=== PATIENT | male | born 1980 | race Caucasian/White ===

== ENCOUNTER 2016-08-14 21:36 | Observation (INO) | payer MEDICAID ==
[2016-08-14 22:25] LABS: ADD DIFF? NO; ADD MORPH? YES; ADD SCAN? NO; ATYPICAL LYMPHOCYTE FLAG 30 (0-99); FRAGMENT RBC FLAG 20 (0-99); HEMATOCRIT 27.3 % (40.0-51.0); HEMOGLOBIN 8.5 g/dL (13.7-17.5); LEFT SHIFT FLG 0 (0-99); LIPEMIA HEMOLYSIS FLAG 80 (0-99); MEAN CELL HEMOGLOBIN CONCENTR. 31.1 g/dL (32.4-36.7); MEAN CELL VOLUME 83.5 fL (81.5-99.8); MEAN PLATELET VOLUME 9.6 fL (8.7-11.7); PLATELET CLUMPS FLAG 10 (0-99); PLATELET COUNT 306 10^3/uL (150-400); RED BLOOD CELL COUNT 3.27 10^6/uL (4.40-6.38)
--- NOTE | 2016-08-14 22:26 | EDPHY ---
H & P Stated Complaint: 2 days ago one episode of black vomit and stool HPI/ROS: HPI CHIEF COMPLAINT: Hematemesis, melena HISTORY OF PRESENT ILLNESS: This patient 36-year-old male significant past medical history for hepatitis C and history of alcohol abuse, untreated hepatitis C presents to the emergency room with nausea vomiting that occurred around 6:00 a.m. this morning with black vomit. Patient also endorses melena or melenic stool over the past day. Denies any complaints he does tell me that at times he has abdominal pain. He tells me he has never been told he has cirrhosis but has been told that he has hepatitis-C. He tells me decided come to the emergency room after having black tarry stool and black vomit earlier this morning late at night because decided to rest today and then his friend was going to work and dropped him off in the emergency room. Of note upon arrival here in the emergency room he appears well nontoxic he does have a rather distended abdomen with prominent abdominal veins concerning for cirrhosis. Patient declined rectal exam here in the emergency room. He is not actively vomiting. Past Medical History: Hepatitis-C untreated, alcohol abuse ? Liver cirrhosis Past Surgical History: Denies significant surgical history Social History: History of alcohol abuse states he rarely drinks alcohol any more, smokes marijuana, denies tobacco, unemployed Family History: Noncontributory ROS REVIEW OF SYSTEMS: A comprehensive 10 point review of systems is otherwise negative aside from elements mentioned in the history of present illness. Exam Constitutional appears well nontoxic, triage nursing summary reviewed, vital signs reviewed, awake/alert. Eyes normal conjunctivae and sclera, EOMI, PERRLA. No jaundice or icteric eyes. HENT normal inspection, atraumatic, moist mucus membranes, no epistaxis, neck supple/ no meningismus, no raccoon eyes. Respiratory clear to auscultation bilaterally, normal breath sounds, no respiratory distress, no wheezing. Cardiovascular rate normal, regular rhythm, no murmur, no edema, distal pulses normal. Gastrointestinal abdomen is soft, rather large, prominent abdominal veins, I do not appreciate hepatomegaly on exam, no guarding or peritoneal signs Genitourinary no CVA tenderness. Musculoskeletal no midline vertebral tenderness, full range of motion, no calf swelling, no tenderness of extremities, no meningismus, good pulses, neurovascularly intact. Skin pink, warm, & dry, no rash, skin atraumatic. Neurologic awake, alert and oriented x 3, AAOx3, moves all 4 extremities equally, motor intact, sensory intact, CN II-XII intact, normal cerebellar, normal vision, normal speech. Psychiatric normal mood/affect. Heme/Lymph/Immune no lymphadenopathy. Differential Diagnosis: Includes but is not limited to in a particular order, acute GI bleed, upper GI bleed, peptic ulcer disease, esophageal varices, liver cirrhosis, lower GI bleed. Medical Decision Making: Given this patient's history of alcohol abuse and hepatitis-C untreated and findings on exam to indicate he most likely has liver disease and his complaint of black tarry stool with black vomit however declining rectal exam will check H&H, type and screen, the placed on Protonix drip and octreotide drip as most likely he is having a GI bleed. Patient will need to be admitted to the hospital at this time he is hemodynamically stable. He will have 2 large-bore IVs established. Re-evaluation: 2237: Of note this patient's H&H is compared he is currently 8.5 on April 17 was 11.3 this an acute drop. CT scan of the Abdomen pelvis with IV contrast The results of the study are small bowel dilatation with fluid filled bowel consistent with gastroenteritis or enteritis, otherwise no acute inflammatory process. The study was read by Dr. Jatinder Ho I viewed the images myself on the PACS system. 8: Spoke with the hospitalist service Dr. Flores who accepts the admission. 2318: Re-examination at this time this patient is hemodynamically stable have placed him on a Protonix drip and octreotide drip. I have admitted to the hospitalist service. He is not actively bleeding here in the emergency room is hemodynamically stable as H&H gym reviewed show an acute drop. Patient has underlying liver disease hepatitis C and history of alcohol abuse it is possible he has an ulcer that is causing a lot of stool and hematemesis versus esophageal varices. The hospitalist service did ask that I consult GI. 2338; I did speak with Gastroenterology Dr. Alvarado will plan on scoping. NPO. Agrees with current management. Source: Patient - Personal History Current Tetanus/Diphtheria Vaccine: Yes Current Tetanus Diphtheria and Acellular Pertussis (TDAP): Yes - Medical/Surgical History Hx Asthma: No Hx Chronic Respiratory Disease: No Hx Diabetes: No Hx Cardiac Disease: No Hx Renal Disease: No Hx Cirrhosis: No Hx Alcoholism: Yes Hx HIV/AIDS: No Hx Splenectomy or Spleen Trauma: No Other PMH: IV DRUG USE/ L FRONTAL SKULL FX 09/08, anemia - Social History Smoking Status: Light smoker Constitutional: Initial Vital Signs Temperature (C) 36.8 C 08/14/16 21:40 Heart Rate 77 08/14/16 21:40 Respiratory Rate 16 08/14/16 21:40 Blood Pressure 128/87 H 08/14/16 21:40 O2 Sat (%) 95 08/14/16 21:40 O2 Delivery Mode Room Air Allergies/Adverse Reactions: No Known Allergies Allergy (Verified 04/17/16 21:30) Home Medications: Medication Instructions Recorded NK [No Known Home Meds] 08/14/16 Medical Decision Making - Data Points Laboratory Results: Laboratory Results 08/14/16 22:10 08/14/16 22:10 08/14/16 08/14/16 08/14/16 23:10 22:45 22:40 WBC RBC Hgb Hct MCV MCH MCHC RDW Plt Count MPV Neut % (Auto) Lymph % (Auto) [place] % (Auto) Eos % (Auto) Baso % (Auto) Nucleat RBC Rel Count Absolute Neuts (auto) Absolute Lymphs (auto) Absolute Monos (auto) Absolute Eos (auto) Absolute Basos (auto) Absolute Nucleated RBC Immature Gran % Immature Gran # Platelet Estimate Giant Platelets Hypochromasia Microcytic Cells Oval Macrocytes PT 14.4 SEC (12.0-15.0) INR 1.13 (0.83-1.16) APTT 31.0 SEC (23.0-38.0) VBG Lactic Acid 0.9 mmol/L (0.7-2.1) Sodium Potassium Chloride Carbon Dioxide Anion Gap BUN Creatinine Estimated GFR Glucose Calcium Total Bilirubin Conjugated Bilirubin Unconjugated Bilirubin AST ALT Alkaline Phosphatase Total Protein Albumin Lipase Urine Color YELLOW Urine Appearance CLEAR Urine pH 5.0 (5.0-7.5) Ur Specific [place] 1.025 (1.002-1.030) Urine Protein NEGATIVE (NEGATIVE) Urine Ketones NEGATIVE (NEGATIVE) Urine Blood NEGATIVE (NEGATIVE) Urine Nitrate NEGATIVE (NEGATIVE) Urine Bilirubin NEGATIVE (NEGATIVE) Urine Urobilinogen NEGATIVE EU (0.2-1.0) Ur Leukocyte Esterase NEGATIVE (NEGATIVE) Ur Culture Indicated? NOT INDICATED (NI) Urine Glucose NEGATIVE (NEGATIVE) Urine Opiates Screen Urine Barbiturates Ur Phencyclidine Scrn Ur Amphetamines Screen U Benzodiazepines Scrn Urine Cocaine Screen U Marijuana (THC) Screen Patient ABO/Rh Antibody Screen 08/14/16 22:10 WBC 4.87 10^3/uL (3.80-9.50) RBC 3.27 L 10^6/uL (4.40-6.38) Hgb 8.5 L g/dL (13.7-17.5) Hct 27.3 L % (40.0-51.0) MCV 83.5 fL (81.5-99.8) MCH 26.0 L pg (27.9-34.1) MCHC 31.1 L g/dL (32.4-36.7) RDW 20.5 H % (11.5-15.2) Plt Count 306 10^3/uL (150-400) MPV 9.6 fL (8.7-11.7) Neut % (Auto) 49.1 % (39.3-74.2) Lymph % (Auto) 33.9 % (15.0-45.0) [place] % (Auto) 15.4 H % (4.5-13.0) Eos % (Auto) 1.2 % (0.6-7.6) Baso % (Auto) 0.4 % (0.3-1.7) Nucleat RBC Rel Count 0.0 % (0.0-0.2) Absolute Neuts (auto) 2.39 10^3/uL (1.70-6.50) Absolute Lymphs (auto) 1.65 10^3/uL (1.00-3.00) Absolute Monos (auto) 0.75 10^3/uL (0.30-0.80) Absolute Eos (auto) 0.06 10^3/uL (0.03-0.40) Absolute Basos (auto) 0.02 10^3/uL (0.02-0.10) Absolute Nucleated RBC 0.00 10^3/uL (0-0.01) Immature Gran % 0.0 % (0.0-1.1) Immature Gran # 0.00 10^3/uL (0.00-0.10) Platelet Estimate ADEQUATE (ADEQ) Giant Platelets PRESENT H Hypochromasia 1+ H Microcytic Cells 1+ H Oval Macrocytes 1+ H PT INR APTT VBG Lactic Acid Sodium 139 mEq/L (134-144) Potassium 3.9 mEq/L (3.5-5.2) Chloride 111 H mEq/L (97-110) Carbon Dioxide 20 L mEq/l (22-31) Anion Gap 8 mEq/L (8-16) BUN 7 mg/dL (7-23) Creatinine 0.6 L mg/dL (0.7-1.3) Estimated GFR > 60 Glucose 100 mg/dL (70-100) Calcium 7.8 L mg/dL (8.5-10.4) Total Bilirubin 0.2 mg/dL (0.1-1.4) Conjugated Bilirubin 0.1 mg/dL (0.0-0.5) Unconjugated Bilirubin 0.1 mg/dL (0.0-1.1) AST 108 H IU/L (17-59) ALT 103 H IU/L (21-72) Alkaline Phosphatase 102 IU/L (38-126) Total Protein 6.3 g/dL (6.3-8.2) Albumin 2.8 L g/dL (3.5-5.0) Lipase 149.0 IU/L (23-300) Urine Color Urine Appearance Urine pH Ur Specific [place] Urine Protein Urine Ketones Urine Blood Urine Nitrate Urine Bilirubin Urine Urobilinogen Ur Leukocyte Esterase Ur Culture Indicated? Urine Glucose Urine Opiates Screen Pending Urine Barbiturates Pending Ur Phencyclidine Scrn Pending Ur Amphetamines Screen Pending U Benzodiazepines Scrn Pending Urine Cocaine Screen Pending U Marijuana (THC) Screen Pending Patient ABO/Rh O POSITIVE Antibody Screen NEGATIVE Medications Given: Discontinued Medications Sodium Chloride (Ns) 1,000 mls @ 0 mls/hr IV ONCE ONE PRN Reason: Wide Open Stop: 08/14/16 22:33 Last Admin: 08/14/16 22:30 Dose: 1,000 mls Ondansetron HCl (Zofran) 4 mg IVP EDNOW ONE Stop: 08/14/16 22:33 Last Admin: 08/14/16 22:35 Dose: 4 mg Pantoprazole Sodium (Protonix) 40 mg IVP EDNOW ONE Stop: 08/14/16 22:41 Last Admin: 08/14/16 22:40 Dose: 40 mg Departure - Departure Disposition: [facility] Clinical Impression: GI bleed Qualifiers: GI bleed type/associated pathology: melena Qualifier Code: (K92.1) Melena Condition: Good
[2016-08-14 22:28] LABS: RED CELL DISTRIBUTION WIDTH 20.5 % (11.5-15.2)
[2016-08-14] MEDS ORDERED: PANTOPRAZOLE SODIUM 80 MG in NS 100 ML IV ONE (22:32)
[2016-08-14] MEDS ORDERED: NS 1,000 ML IV ONE ×2 (22:32→23:32)
[2016-08-14] MEDS ORDERED: ONDANSETRON 4 MG/2 ML VIAL IVP ONE (22:32)
[2016-08-14 22:36] LABS: ANION GAP 8 mEq/L (8-16); CALCIUM 7.8 mg/dL (8.5-10.4); CARBON DIOXIDE 20 mEq/l (22-31); CHLORIDE 111 mEq/L (97-110); CREATININE 0.6 mg/dL (0.7-1.3); GLOMERULAR FILTRATION RATE > 60; GLUCOSE 100 mg/dL (70-100); POTASSIUM 3.9 mEq/L (3.5-5.2); SODIUM 139 mEq/L (134-144)
[2016-08-14] MEDS ORDERED: IOPAMIDOL (ISOVUE-300) 100 ML BTL IV ONE (22:37)
[2016-08-14] MEDS ORDERED: PANTOPRAZOLE SODIUM 40 MG VIAL IVP ONE (22:40)
[2016-08-14 22:56] LABS: GIANT PLATELETS PRESENT; HYPOCHROMIA 1+; MACROCYTES 1+; MICROCYTES 1+; PLATELET ESTIMATE ADEQUATE (ADEQ)
[2016-08-14] MEDS ORDERED: PANTOPRAZOLE SODIUM 80 MG in NS 100 ML IV SCH (23:00)
[2016-08-14 23:01] LABS: ALBUMIN 2.8 g/dL (3.5-5.0); BILIRUBIN,TOTAL 0.2 mg/dL (0.1-1.4); BILIRUBIN-CONJUGATED 0.1 mg/dL (0.0-0.5); BILIRUBIN-UNCONJUGATED 0.1 mg/dL (0.0-1.1); TOTAL PROTEIN 6.3 g/dL (6.3-8.2)
[2016-08-14 23:05] LABS: INR 1.13 (0.83-1.16); PROTIME(PATIENT) 14.4 SEC (12.0-15.0)
[2016-08-14 23:17] LABS: COLOR YELLOW; LEUKOCYTE ESTERASE,URINE NEGATIVE (NEGATIVE); NITRITE,URINE NEGATIVE (NEGATIVE)
--- NOTE | 2016-08-14 23:18 | CT ---
CT Scan of the Abdomen and Pelvis (With Contrast) Clinical Indications: Abdominal pain Technique:. 90 mL of Isovue 300 were given intravenously by machine power injection. Multidetector helical CT imaging was performed from the diaphragm to the symphysis pubis. Dose reduction techniques were utilized. Findings: CT ABDOMEN: Lung bases are clear. Liver, spleen, pancreas enhance normally. Kidneys enhance symmetric ally. There is moderate fluid-filled distention of the stomach and the small bowel throughout, suggestive o f ileus or enteritis. Moderate retained stool is present in the right colon and the transverse colon. CT PELVIS: No free fluid or masses. The appendix is normal in appearance in the right lower quadrant, retrocecal in location. Impression: 1. Moderate fluid-filled distention of the stomach and entire small bowel suggestive of enteritis or ileus. Moderate retained fecal material in the ascending and transverse colon. Results called to Dr. Henson at 11:10 PM
[2016-08-14] MEDS ORDERED: ONDANSETRON 4 MG/2 ML VIAL IVP PRN (23:32)
[2016-08-14] MEDS ORDERED: NS 1,000 ML IV SCH (23:45)
[2016-08-15 00:16] LABS: PHENCYCLIDINE URINE BCH < 6 ng/ml (NEGATIVE)
[2016-08-15 00:28] LABS: TETRAHYDROCANNABINOL URINE > 800 ng/mL (NEGATIVE)
[2016-08-15 00:29] LABS: PHENCYCLIDINE URINE BCH NEGATIVE (NEGATIVE); TETRAHYDROCANNABINOL URINE > 800 ng/mL (NEGATIVE)
--- NOTE | 2016-08-15 01:00 | GHP ---
[f rep st] HISTORY AND PHYSICAL DATE OF ADMISSION: 08/14/2016 CHIEF COMPLAINT: Coffee-grounds emesis and melena. HISTORY OF PRESENT ILLNESS: A 36-year-old male with a history of polysubstance abuse, hepatitis C, a nd alcohol abuse in the past, who presents with complaints of sudden onset of abdominal pain, coffee- grounds emesis and melena on the morning of presentation. The patient reports being in his normal st ate of health the day prior to presentation, normal intake, without lightheadedness, chest pain, shor tness of breath, and nora this morning, had some nausea, some right-sided abdominal discomfort, and v omited what he described as black bloody vomit. The patient denies any active lightheadedness or sully st pain in the emergency department. Has not had recurrent episodes of coffee-grounds emesis. Has n oted melena since that emesis. The patient reports having had an EGD and a colonoscopy this year in [place], and nothing was found. He reports that was done because of low blood counts noted at an [facility]. The patient actively denying any fevers or chills, rashes, myalgias, arthralgias. Is experiencing still some epigastric and right-sided abdominal pain. Nausea is improved. PAST MEDICAL HISTORY: 1. Hepatitis C. 2. History of polysubstance abuse. 3. History of alcohol abuse. Patient reports cessation. SOCIAL HISTORY: He reports no tobacco, previous alcohol, daily marijuana. No active illicit drug us e. FAMILY HISTORY: Patient is adopted, he does not know. REVIEW OF SYSTEMS: A 10-point review of systems is negative, with the exception of that reported in the HPI. PHYSICAL EXAMINATION: VITAL SIGNS: Blood pressure 128/87, heart rate 77, respiratory rate 16, 95% o n room air, 36.8. GENERAL: This is a healthy-appearing male in no acute distress. HEENT: Notable for moist mucous membranes. Eye exam is negative for any icterus. CARDIAC: Patient is regular rate and rhythm. PULMONARY: Clear to auscultation bilaterally. GASTROINTESTINAL: Positive bowel sound s. Abdomen is soft, mildly tender to palpation in the right upper and lower quadrants. No rebound o r guarding is noted. MUSCULOSKELETAL: Negative for any lower extremity edema. SKIN: Negative for any rashes or jaundice. NEUROLOGIC: He is alert and oriented x3. PSYCHIATRIC: He is cooperative o n interview and examination. DATA: Hemoglobin 8.5, hematocrit 27.3, platelets of 306. Creatinine of 0.6, AST is 108, ALT 103. U rinalysis is negative. CT of the abdomen, which I personally reviewed and interpreted, shows some constipation, otherwise no acute abnormalities. Radiology comments on distention of the small bowel suggestive of enteritis or possible evolving ileus. ASSESSMENT AND PLAN: This is a 36-year-old male presenting with hematemesis/coffee-grounds emesis. 1. Acute upper gastrointestinal bleed. The patient denies any alcohol or drug abuse. Possibility o f gastritis, ulcer disease is certainly possible. Will make the patient n.p.o. Fluid resuscitate wi th IV normal saline, and start a pantoprazole drip. Gastroenterology has been consulted from the [facility] department for EGD in the morning. We will keep the patient n.p.o. now, and follow a CBC in t he morning. 2. Anemia, secondary to acute blood loss. As above, suspect upper gastrointestinal source. Will pl an for EGD in the morning. 3. Hepatitis C. Patient does have elevations in his AST/ALT. Can continue to follow. Would not in itiate additional diagnostics at this time. 4. History of polysubstance abuse. Will send a urine toxicology screen on the patient's urine. 5. Prophylaxis. Lovenox is contraindicated, in the setting of acute GI bleed. 6. Diet. N.p.o. 7. Disposition. I expect in less than 2 midnights if the patient remains hemodynamically stable wit h normal imaging. I have discussed the case with the ER physician. Patient will be triaged to the medical/surgical [facility] or for care. /[id number]/MODL
[2016-08-15 05:37] LABS: % IMMATURE GRANULYOCYTES 0.2 % (0.0-1.1); ABSOLUTE IMMATURE GRANULOCYTES 0.01 10^3/uL (0.00-0.10); ADD DIFF? NO; ADD MORPH? YES; ADD SCAN? NO; ATYPICAL LYMPHOCYTE FLAG 30 (0-99); FRAGMENT RBC FLAG 20 (0-99); HEMATOCRIT 27.7 % (40.0-51.0); HEMOGLOBIN 8.3 g/dL (13.7-17.5); LEFT SHIFT FLG 0 (0-99); LIPEMIA HEMOLYSIS FLAG 80 (0-99); MEAN CELL HEMOGLOBIN 25.1 pg (27.9-34.1); MEAN CELL VOLUME 83.7 fL (81.5-99.8); PLATELET CLUMPS FLAG 10 (0-99); PLATELET COUNT 279 10^3/uL (150-400); RED BLOOD CELL COUNT 3.31 10^6/uL (4.40-6.38)
[2016-08-15 05:50] LABS: ANION GAP 10 mEq/L (8-16); CALCIUM 8.1 mg/dL (8.5-10.4); CARBON DIOXIDE 19 mEq/l (22-31); CHLORIDE 112 mEq/L (97-110); CREATININE 0.6 mg/dL (0.7-1.3); GLOMERULAR FILTRATION RATE > 60; GLUCOSE 84 mg/dL (70-100); POTASSIUM 4.1 mEq/L (3.5-5.2); SODIUM 141 mEq/L (134-144)
[2016-08-15 05:55] LABS: RED CELL DISTRIBUTION WIDTH 20.4 % (11.5-15.2)
[2016-08-15 06:43] LABS: HYPOCHROMIA 1+; MACROCYTES 1+; MICROCYTES 1+; PLATELET ESTIMATE ADEQUATE (ADEQ)
[2016-08-15 06:44] LABS: GIANT PLATELETS PRESENT
--- NOTE | 2016-08-15 08:33 | HOSPPROG ---
Hospitalist Progress Note Assessment/Plan: 36-y/o M PMH polysubstance abuse, hep C, EtOH abuse in the past, p/w sudden onset abd pain starting yesterday. Awoke in [facility] and noted some R-sided abd pain and followed by bloody emesis. Has had melena since then. This is my first visit with patient. Chart reviewed and d/w Dr. Flores. #. UGIB: pt has been fluid resuscitated and started on IV pantoprazole plan for EGD this AM #. hep C: elevted LFTs will arrange for outpatient followup #. polysubstance: + amphetamines and marijuana despite pt's claims of no illicits recently #. Dispo: pending Objective: Vital Signs Temp Pulse Resp BP Pulse Ox 98.7 F 59 L 18 113/77 95 08/15/16 08:00 08/15/16 08:00 08/15/16 08:00 08/15/16 08:00 08/15/16 08:00 Laboratory Results 08/15/16 05:10 08/15/16 05:10 08/14/16 08/15/16 08/16/16 05:59 05:59 05:59 Intake Total 1100 Output Total 400 Balance 700 PT 14.4 SEC (12.0-15.0) 08/14/16 22:45 INR 1.13 (0.83-1.16) 08/14/16 22:45 ICD10 Worksheet Patient Problems: Problems Problem Status Diagnosed GI bleed Acute Anemia Acute Polysubstance abuse Acute
[2016-08-15] MEDS ORDERED: PANTOPRAZOLE SODIUM 80 MG in NS 100 ML IV SCH (09:00)
[2016-08-15] MEDS ORDERED: PROPOFOL 200 MG/20 ML VIAL ONE ×2 (10:01→10:04)
[2016-08-15] MEDS ORDERED: LIDOCAINE 2% 5 ML SDV ONE (10:03)
[2016-08-15] MEDS ORDERED: PANTOPRAZOLE SODIUM 40 MG TAB PO ONE ×2 (10:11→13:00)
--- NOTE | 2016-08-15 10:16 | SUROPNOTE ---
[facility] Operative Report - Surgery EGD Full note dictated. Findings: Grade B Esophagitis Duodenal changes c/w celiac sprue biopsied Low risk for significant bleeding REC: PPI daily D/C ETOH Advance diet to gluten free diet Await path OK to D/C from GO standpoint Follow up with GI family reunification specialist for Hep C
--- NOTE | 2016-08-15 10:55 | GPN ---
[f rep st] PROCEDURE NOTE DATE OF PROCEDURE: 08/15/2016 PROCEDURE PERFORMED: Upper endoscopy with biopsy. INSTRUMENT USED: Olympus GIF videogastroscope. MEDICINES GIVEN: Monitored anesthesia care per the anesthesiologist. INDICATIONS: Patient is a 36-year-old with hematemesis, with history of alcohol and hepatitis C, and history of celiac sprue untreated, referred for upper endoscopy. Prior to procedure, exam performed including auscultation of heart and lungs within normal limits. Patient's mental status was appropri ate. Procedure was explained, including risks of bleeding, perforation, effects of sedation. He gav e his informed consent. FINDINGS: Patient was placed in left lateral decubitus position. Medicines were given by the anesth esiologist. Instrument was inserted through the bite block into the esophagus. No obvious varices were seen, but there was a grade B erosive esophagitis at the GE junction. No obvious Melinda-Schmidt tear. There w as no old blood. No active bleeding. Stomach was normal, including on retroflexion. Scope then pas sed in the duodenum, which had a significant cobblestone appearance throughout to the bulb and second portion of the duodenum consistent with active celiac sprue. Biopsies were taken with minimal blood loss. Scope was removed from the patient, who tolerated the procedure well. Time of the procedure w as approximately 10 minutes. ASSESSMENT: 1. Grade B erosive esophagitis. I suspect this was the source of his hematemesis. He is at low ris k for rebleeding. 2. Duodenal changes consistent with celiac sprue. I think that patient may have some chronic anemia , to which he does admit, likely from underlying celiac. PLAN: 1. Recommend proton pump inhibitor daily. 2. Discontinue alcohol. 3. Will await biopsies of his duodenum. 4. In the meantime, I would recommend patient initiate a gluten-free diet. 5. May advance diet, okay to discharge home today as low risk for rebleeding. I would recommend fol silvanoup with Gastroenterology with our principal architect for evaluation and treatment of his hepatitis C. I will have my office call him next week. Thanks for this consult. /[id number]/MODL
[2016-08-15 11:53] VITALS: BP 111/72; PULSE 74; RESP 18; TEMP 98.6; O2SAT 96
--- NOTE | 2016-08-15 12:06 | GCON ---
[f rep st] CONSULTATION DATE OF CONSULTATION: 08/15/2016 CHIEF COMPLAINT: Hematemesis. HISTORY OF PRESENT ILLNESS: I am asked to see the patient in consultation by Dr. Flores for the [facility] complaint of hematemesis. As you know, this is a pleasant 36-year-old, who presents to the emerge ncy room with 1 episode hematemesis he states happened yesterday morning around 6 a.m.; he noted lashon k coffee-grounds emesis and then followed by 1 black melenic stool. He states he has never had histo ry of GI bleeding before, has no known history of peptic ulcer disease. States that he did have an u pper and lower endoscopy in [place], [place], about 6 months ago and states things were "normal"; altho ugh, he was told he should be on a gluten-free diet with which he admits to being noncompliant. Does note that he as a family history for celiac sprue in his sister. He does use alcohol. He states hi s last alcohol use was about 3 days ago. He has a history of polysubstance abuse. He has a history of hepatitis C but has not undergone therapy, but states that he does not recall having any mention o f esophageal varices on his last upper endoscopy. He denies NSAID use. He does have some abdominal pain. He has chronic diarrhea that is not changed from his baseline. It will happen every few days with significant watery diarrhea. He also states that he has a history of chronic anemia and was sammy d that that was probably from underlying celiac sprue. ALLERGIES: No reported allergies. MEDICATION: He states he takes no medications prior to admission. PAST MEDICAL HISTORY: Notable for hepatitis C, polysubstance abuse, alcohol abuse, probable celiac s prue per history, history of anemia with an EGD/colon evaluation previously and thought that his anem ia was from celiac sprue. SOCIAL HISTORY: He uses alcohol. History of polysubstance abuse, although he states none recently. FAMILY HISTORY: He is adopted but does know his biological sister who has celiac sprue. REVIEW OF SYSTEM: Review of 10 systems including general, psych, HEENT, cardiovascular, pulmonary, r enal, hematologic, musculoskeletal, derm, and neurologic discussed and otherwise negative except note d above. PHYSICAL EXAMINATION: VITAL SIGNS: Afebrile at 36.6, BP 118/78, pulse 70. HEENT: PERRLA. EOMI. No scleral icterus. Oropharynx is normal. NECK: Supple without lymphadenopathy. No thyromegaly. CARDIAC: Regular rate and rhythm. S1, S2 normal. No S3 or murmur detected. PMI normal location. CHEST: Clear to auscultation bilaterally. Normal chest excursion. No spider angiomata. ABDOMEN: Soft and nontender. There is no hepatosplenomegaly, no fluid wave, no distention. EXTREMITIES: Normal. No pitting edema. NEUROLOGIC: Nonfocal. No asterixis. LABORATORY DATA: Of note, BUN was not elevated, normal at 7. Creatinine 0.6, sodium 139, potassium 3.9, alk phos normal at 102, bili normal at 0.2, AST 108, ALT 103, albumin low at 2.8, lipase normal at 149. Coag's normal with PT of 14.4 and an INR 1.13. CT scan of the abdomen from 08/14/2016 shows moderate fluid distention of the stomach and entire smal l bowel, suggestive of enteritis or ileitis; moderate retained fecal material in the ascending and tr ansverse colon. ASSESSMENT: Upper gastrointestinal bleed, although hemodynamically stable. As he does not have an e levated BUN, it was likely not a significant bleed. Consider Melinda-Schmidt or esophagitis. Of janet rn is patient's suggestive history of celiac sprue., which is being untreated. This may account for some chronic anemia and could account for findings on CT scan if significant enough. Patient does no t have stigmata of cirrhosis but does have history of drinking and hepatitis C, and will need to cons ider esophageal varices, peptic ulcer disease, etc. PLAN: Recommend upper endoscopy for evaluation of upper GI bleed. Can evaluate for active celiac sp rue at that time. Patient would benefit from outpatient evaluation and treatment for his hepatitis C . Further recommendations to follow. Thank you for this consult. /[id number]/MODL
--- NOTE | 2016-08-15 12:11 | GDS ---
[f rep st] DISCHARGE SUMMARY DISCHARGE DIAGNOSES: 1. Upper gastrointestinal bleed, found to have esophagitis on esophagogastroduodenoscopy today with appearance of duodenal changes consistent with celiac sprue. 2. History of hepatitis C. 3. History of polysubstance abuse. PROCEDURES: 1. 08/14/2016: Abdominal CT which shows moderate fluid-filled distention of the stomach and entire small bowel suggestive of enteritis or ileus. 2. 08/15/2016: EGD shows grade B esophagitis and duodenal changes consistent with celiac sprue that has been biopsied. BRIEF HISTORY: Please see dictated H and P by Dr. Deya Flores for complete details. In brief, Mr. Arthur Lynn is a 36-year-old male with a history of polysubstance abuse, hepatitis C, and alcohol abus e, reporting cessation currently, who was admitted for acute onset of abdominal pain, coffee-ground e mesis, and melena that started on 08/14/2016. GI was consulted and proceeded to EGD on day of discha rge. This showed grade B esophagitis. He will be started on a PPI for this. Additionally, he has d uodenal changes consistent with celiac sprue. He was counseled on low on gluten-free diet. He was a dvised about his anemia. He will be started on iron and will need followup as an outpatient for this . RESULTS PENDING: None. DIET: Gluten-free. ACTIVITY: As tolerated. DISCHARGE MEDICATIONS: He was given a prescription for Protonix and iron. Please see med reconcilia tion for complete details. FOLLOWUP: He is to establish care with [facility] as an outpatient to follow up his anemia. He is also to follow up with Dr. Alvarado or Dr. Diaz for treatment of his hepatitis C. /[id number]/MODL
== END 2016-08-15 14:28 | disposition home or self-care (01) ==
LOC: INTOOBSV 23:21 → F3E 08-15 00:33
PROVIDERS: ADMIT Hospitalist; ATTEND Hospitalist
PROC: 0DB98ZX Excision of Duodenum, Via Natural or Artificial Opening Endoscopic, Diagnostic (ICD-10-PCS; principal; 2016-08-15 09:55)
DX: K92.2 Gastrointestinal hemorrhage, unspecified (principal); K90.0 Celiac disease; K20.9 Esophagitis, unspecified; B19.20 Unspecified viral hepatitis C without hepatic coma
CPT/HCPCS: 43239; 74177; G0378; 80307; 96365; G0480; J2405; J2704; Q9967

== ENCOUNTER 2018-11-13 12:16 | Emergency (ER) | payer MEDICAID ==
--- NOTE | 2018-11-13 13:25 | EDPHY ---
H & P Stated Complaint: months of dizzyness with movement "feels like th ground is moving under hi, Time Seen by Provider: 11/13/18 13:04 HPI/ROS: CHIEF COMPLAINT: Vertigo HISTORY OF PRESENT ILLNESS: Patient is a 38-year-old man with a history of IV drug abuse and alcoholism who states that he has had gradually increasing vertigo symptoms for the last 18 months. He states that about 18 months ago in [place] he had seizure-like episode we could not control as body however he remained conscious throughout the episode. He was seen there at the time but did not have a CT scan. Since that time he has had gradually increasing dizziness. He describes it as feeling like that world is unsteady when he tries to walk or stand still. He does not have the symptoms with sitting or lying down. It is not worsened by turning his head. No nausea vomiting. No loss of consciousness. No focal weakness or deficits. He does complain of some mild buzzing in his left ear primarily. No hearing loss. No vision changes. Severity: Moderate Modifying factors: None REVIEW OF SYSTEMS: Constitutional: denies: chills, fever, recent illness, recent injury EENTM: See HPI Respiratory: denies: cough, shortness of breath Cardiac: denies: chest pain, irregular heart rate, lightheadedness, palpitations Gastrointestinal/Abdominal: denies: abdominal pain, diarrhea, nausea, vomiting, blood streaked stools Genitourinary: denies: dysuria, frequency, hematuria, pain Musculoskeletal: denies: joint pain, muscle pain Skin: denies: lesions, rash, jaundice, bruising Neurological: See HPI denies: headache, numbness, paresthesia, tingling, weakness Hematologic/Lymphatic: denies: blood clots, easy bleeding, easy bruising Immunologic/allergic: denies: HIV/AIDS, transplant 10 systems reviewed and negative except as noted EXAM: GENERAL: Well-appearing, well-nourished and in no acute distress. HEAD: Atraumatic, normocephalic. EYES: Slight nystagmus to the left. Pupils equal round and reactive to light, extraocular movements intact, sclera anicteric, conjunctiva are normal. ENT: TMs normal, nares patent, oropharynx clear without exudates. Moist mucous membranes. NECK: Normal range of motion, supple without lymphadenopathy or JVD. LUNGS: Breath sounds clear to auscultation bilaterally and equal. No wheezes rales or rhonchi. HEART: Regular rate and rhythm without murmurs, rubs or gallops. ABDOMEN: Soft, nontender, normoactive bowel sounds. No guarding, no rebound. No masses appreciated. BACK: No CVA tenderness, no spinal tenderness, step-offs or deformities EXTREMITIES: Normal range of motion, no pitting or edema. No clubbing or cyanosis. NEUROLOGICAL: Cranial nerves II through XII grossly intact. Normal speech, normal gait. Ambulates without difficulty. Able to balance on heels and toes. 5/5 strength, normal movement in all extremities, normal sensation, normal reflexes PSYCH: Normal mood, normal affect. SKIN: Warm, dry, normal turgor, no visible rashes or lesions. Source: Patient Exam Limitations: No limitations - Personal History Current Tetanus Diphtheria and Acellular Pertussis (TDAP): Yes - Medical/Surgical History Hx Asthma: No Hx Chronic Respiratory Disease: No Hx Diabetes: No Hx Cardiac Disease: No Hx Renal Disease: No Hx Cirrhosis: No Hx Alcoholism: Yes Hx HIV/AIDS: No Hx Splenectomy or Spleen Trauma: No Other PMH: IV DRUG USE/ L FRONTAL SKULL FX 09/08, anemia - Family History Significant Family History: No pertinent family hx - Social History Smoking Status: Former smoker Alcohol Use: None Constitutional: Initial Vital Signs Temperature (C) 36.8 C 11/13/18 12:21 Heart Rate 67 11/13/18 12:21 Respiratory Rate 17 11/13/18 12:21 Blood Pressure 121/91 H 11/13/18 12:21 O2 Sat (%) 97 11/13/18 12:21 O2 Delivery Mode Room Air Allergies/Adverse Reactions: gluten Allergy (Verified 11/13/18 12:21) Home Medications: Medication Instructions Recorded Ferrous Sulfate [Slow Release Iron] 250 mg PO DAILY #30 tablet.er 11/13/18 Medical Decision Making - Diagnostics Imaging: Discussed imaging studies w/ machine scallop cutter Radiologist ED Course/Re-evaluation: 3:05 p.m. we discussed the patient's lab work and head CT. He is very much reassured. I suspect that his symptoms are primarily from his anemia. He has celiac disease in only recently has been trying to be gluten free. I encouraged iron supplementation. He is also slightly low calcium and does not have any spasming or tetany or neuro psychiatric symptoms. Encouraged iron supplementation and stool softeners if needed. Patient understands and agrees with this plan. He has not had any blood in his stool. We discussed follow-up and indications for returning. Differential Diagnosis: Partial list of the Differential diagnosis considered include but were not limited to; anemia, electrolyte abnormality, malabsorption, manniers disease and although unlikely based on the history and physical exam, I also considered CVA, dissection, mass, infection, concussion. I discussed these differential diagnoses and the plan with the patient as well as the usual and expected course. The patient understands that the diagnosis is provisional and that in medicine we are not always correct and that further workup is often warranted. Usual and customary warnings were given. All of the patient's questions were answered. The patient was instructed to return to the emergency department should the symptoms at all worsen or return, otherwise to followup with the physician as we discussed. - Data Points Laboratory Results: Laboratory Results 11/13/18 13:24 11/13/18 13:24 Departure - Departure Disposition: Home, Routine, Self-Care Clinical Impression: Anemia Qualifiers: Anemia type: unspecified type Qualified Code(s): D64.9 - Anemia, unspecified Condition: Fair Instructions: Anemia (ED) Referrals: NONE *PRIMARY CARE P,. [Primary Care Provider] - As per Instructions Melissa Dorsey MD [Medical Doctor] - As per Instructions Prescriptions: Ferrous Sulfate [Slow Release Iron] 250 mg PO DAILY #30 tablet.er
[2018-11-13 13:37] LABS: PLATELET COUNT 403 10^3/uL (150-400)
[2018-11-13 15:24] VITALS: BP 145/95
== END 2018-11-13 15:23 | disposition home or self-care (01) ==
DX: D64.9 Anemia, unspecified (principal); Z87.891 Personal history of nicotine dependence